=== PATIENT | male | born 1965 | race Caucasian/White ===

== ENCOUNTER → 2020-05-06 | Outpatient (CLI) | payer MEDICARE, MEDICAID ==
[~2020-05-06] MED LIST: AMLODIPINE BESY10 MG PO; HYDROCHLOROTHIA25 M2 PO; HYDROCODON-ACE1 EAC7 PO; PRINIVIL20 MG PO
== END ==
LOC: M.LAB 09:36
PROVIDERS: ATTEND Surgery
DX: Z01.812 Encounter for preprocedural laboratory examination (principal); Z20.822 Contact with and (suspected) exposure to COVID-19; K43.9 Ventral hernia without obstruction or gangrene

== ENCOUNTER → 2020-05-09 | Day surgery (SDC) | payer MEDICARE, MEDICAID ==
--- NOTE | ~2020-05-09 | OP ---
[facility] [address] [place] [address] OPERATIVE REPORT Name: VANDANA ROQUE Room: [facility] Sarah.#: [id number] Admission: 05/09/20 Attend Phys: Yoel Conte Discharge: Date of : 69 Report #: [id number] THIS REPORT FOR: cc: FAM - No family physician/PCP FAM - No family physician/PCP ~ Yoel Conte MD DATE OF SERVICE: 05/09/2020 PREOPERATIVE DIAGNOSIS: Right upper quadrant abdominal ventral incisional hernia. POSTOPERATIVE DIAGNOSIS: Right upper quadrant abdominal ventral incisional hernia. OPERATION: Laparoscopic-assisted repair of ventral incisional hernia without mesh. SURGEON: Yoel Conte MD ANESTHESIA: General. ESTIMATED BLOOD LOSS: Minimal. SPECIMEN: Right upper quadrant abdominal wall fat. DESCRIPTION OF PROCEDURE: After informed consent was obtained, the patient was brought to the operating room and placed supine. SCDs were placed and working, preoperative antibiotics were administered, general anesthesia was induced. The abdomen was prepped and draped in the usual sterile fashion. A 5 mm incision was made in the left upper quadrant. A 5 mm trocar was placed under direct vision. Pneumoperitoneum was established. I examined the right upper quadrant of the abdomen. I could see the old trocar site. However, there was no overt hernia. I therefore made an incision over the trocar site. Dissected down to the fascia. Some of the subcutaneous fat was excised. There was a small defect in the anterior abdominal wall. This was closed with a etzuie-yj-ayset 0 Vicryl suture. The skin was then closed with 4-0 Monocryl in running subcuticular fashion. Incision was dressed with Steri-Strips and gauze. Sterile dressings were applied. COMPLICATIONS: [place] [address] OPERATIVE REPORT Name: VANDANA ROQUE [id number] Admission: 05/09/20 Attend Phys: Yoel Conte Discharge: Date of : 69 Report #: [id number] DISPOSITION: The patient was taken to recovery in satisfactory condition. By: [id number] Conte MD /meche
[2020-05-09 09:49] LABS: HEMATOCRIT 42.9 % (42.0-52.0); HEMOGLOBIN 14.9 gm/dL (14.0-18.0); MCH 30.8 pg (26.0-34.0); MCHC 34.7 g/dL (28.0-37.0); MCV 88.8 fL (80.0-100.0); RBC 4.83 mil/uL (4.50-6.00); RDW-CV 12.8 % (10.5-14.5); WBC 7.9 thou/uL (4.0-11.0)
[2020-05-09 10:00] LABS: CALCIUM 10.3 mg/dL (8.5-10.1); CREATININE 0.8 mg/dL (0.6-1.3); POTASSIUM 3.9 mmol/L (3.5-5.1)
--- NOTE | 2020-05-09 13:05 | EKG ---
[place] [address] ELECTROCARDIOGRAM REPORT Name: VANDANA ROQUE Room: [facility]#: [id number] Admission: 05/09/20 Attend Phys: Yoel Gaytan Discharge: Date of : 69 Date of Service: 05/09/2039 Report #: [id number] THIS REPORT FOR: //name// [facility] Test Date: 2020-05-09 Test Time: 09:39:30 Pat Name: VANDANA ROQUE Department: Room: Gender: [employer]: : 1965 Requested By: Yoel Conte Order Number: [id number] Chaz MD: Jerry Palacios Measurements Intervals [place] Rate: 74 P: 52 UT: 163 QRS: -5 QRSD: 93 T: -5 QT: 383 QTc: 425 Interpretive Statements Sinus rhythm Borderline T abnormalities, inferior leads No previous ECG available for comparison Electronically Signed On 05-09-2020 13:04:56 INFORMATION SECURITY ANALYST by Jerry Palacios [email or web address] <ELECTRONICALLY SIGNED> By: Jerry Palacios MD, [facility] 05/09/20 1304 8 8 Jerry Palacios MD, FAC /EPI
== END | disposition home or self-care (01) ==
LOC: M.SUR 09:22
PROVIDERS: ATTEND Surgery
DX: K43.2 Incisional hernia without obstruction or gangrene (principal); R10.11 Right upper quadrant pain; Z90.49 Acquired absence of other specified parts of digestive tract; Z79.899 Other long term (current) drug therapy